=== PATIENT | female | born 1980 | race Two or more races ===

== ENCOUNTER 2017-12-31 09:00 | Inpatient (IN) | payer BC, OTHER ==
[~2017-12-31 09:00] MED LIST: DEXTROSE 5%-LACTATED RINGERS 1,000 ML IV SCH
[2017-12-31 09:47] VITALS: BMI 35.3
[2017-12-31] MEDS ORDERED: PROMETHAZINE HCL 25 MG/1 ML VIAL IVPB ONE (10:14)
[2017-12-31] MEDS ORDERED: BUTORPHANOL TARTRATE 1 MG/ML VIAL ONE ×2 (10:14)
[2017-12-31] MEDS ORDERED: PROMETHAZINE HCL 25 MG/1 ML VIAL ONE (10:14)
[2017-12-31] MEDS ORDERED: BUTORPHANOL TARTRATE 1 MG/ML VIAL IVPB ONE (10:14)
[2017-12-31 10:31] LABS: BASO % 0.4 % (0-2.0); EOS % 0.2 % (0-4.5); HEMATOCRIT 38.8 % (32.4-45.2); HEMOGLOBIN 12.8 GM/dL (10.7-15.3); LYMPH % 15.6 % (8-40); MCHC 32.9 g/dl (32.0-36.0); MEAN CELL VOLUME 91.3 fl (80-96); MEAN PLT VOLUME 8.3 fl (7.5-11.1); MONO % 5.7 % (3.8-10.2); NEUT % 78.1 % (42.8-82.8); PLATELET COUNT 270 K/MM3 (134-434); RBC 4.25 M/mm3 (3.60-5.2); RDW 13.5 % (11.6-15.6); WHITE BLOOD COUNT 10.9 K/mm3 (4.0-10.0)
[2017-12-31 10:54] LABS: INR 0.87 (0.83-1.09); PROTHROMBIN TIME (PATIENT) 10.2 SEC (9.7-13.0)
[2017-12-31 10:57] LABS: ACTIVATED PTT 26.7 SECONDS (25.2-36.5)
[2017-12-31] MEDS ORDERED: TUBERCULIN PPD 5 TU/0.1ML SYRINGE (IN PATIENT USE ONLY) ID ONE (11:00)
[2017-12-31 11:03] LABS: ANION GAP -17 MMOL/L (8-16); BLOOD UREA NITROGEN 8 mg/dL (7-18); CALCIUM 9.5 mg/dL (8.5-10.1); CHLORIDE 112 mmol/L (98-107); CO2 19 mmol/L (21-32); CREATININE 0.6 mg/dL (0.55-1.3); GLUCOSE,RANDOM 86 mg/dL (74-106); POTASSIUM 3.5 mmol/L (3.5-5.1)
[2017-12-31 11:16] LABS: SODIUM 115 mmol/L (136-145)
[2017-12-31] MEDS ORDERED: SODIUM CHLORIDE 1,000 ML IV SCH (12:25)
[2017-12-31 12:29] LABS: PLATELET ESTIMATE ADEQUATE
[2017-12-31 14:49] LABS: ALK PHOS 180 U/L (45-117); ANION GAP 8 MMOL/L (8-16); BILIRUBIN,TOTAL 0.5 mg/dL (0.2-1); BLOOD UREA NITROGEN 7 mg/dL (7-18); CALCIUM 8.6 mg/dL (8.5-10.1); CHLORIDE 106 mmol/L (98-107); CO2 19 mmol/L (21-32); CREATININE 0.6 mg/dL (0.55-1.3); GLUCOSE,RANDOM 93 mg/dL (74-106); POTASSIUM 4.2 mmol/L (3.5-5.1); SGOT/AST 16 U/L (15-37); SGPT/ALT 17 U/L (13-61); SODIUM 133 mmol/L (136-145); TOT PROT 6.7 g/dl (6.4-8.2)
[2017-12-31] MEDS ORDERED: FENTANYL/BUPIVACAINE/NS/PF - PCEA - 50 ML DISP.SYRIN EP ONE ×3 (14:53→23:11)
[2017-12-31] MEDS ORDERED: BUPIVACAINE HCL/PF 0.25% (2.5MG/ML) 10 ML VIAL ONE (15:00)
[2017-12-31] MEDS ORDERED: ELECTROLYTE-148 SOLN 500 ML IV SCH (15:00)
[2017-12-31] MEDS ORDERED: NALOXONE HCL 0.4 MG/ML VIAL IVPUSH PRN (15:27)
[2017-12-31] MEDS ORDERED: FENTANYL/BUPIVACAINE/NS/PF - PCEA - 50 ML DISP.SYRIN EP SCH (15:30)
[2017-12-31] MEDS ORDERED: ePHEDrine SULFATE 50 MG/1 ML AMPULE ONE (15:38)
[2017-12-31] MEDS ORDERED: SODIUM CHLORIDE 0.9% P/F 10 ML VIAL IJ ONE (15:38)
[2017-12-31] MEDS ORDERED: ELECTROLYTE-148 SOLN 1,000 ML IV SCH (16:00)
--- NOTE | 2017-12-31 20:29 | HP ---
Past Medical History - Primary Care Physician PCP:: Alxei Renae - Admission Chief Complaint: 37yo P0 with at EGA 39w3d admitted with spontaneous labor. History of Present Illness: Pt was admitted tis morning with spontaneous latent labor. she progressed to 2cm and requested epidural anesthesia. The epidural was placed. Post-epidural hypotension was noted and caused bradycardia at 3:33pm x 8min. The pt's blood pressure was corrected and the FHT recovered to Category I. The pt progressed to 5-6cm of dilation. She subsequently had a another prolonged deceleration at 6:30pm x 2 min that recovered with position change to Category I tracing. The pt was re-examined at 7pm and found to be still 5-6cm. AROM was done and clear fluid was noted. Late transfer of care AMA Hx of Gastric sleeve H/o cardiac echogenic focus- genetic screen was negative Vag GBS negative History Source: Patient, Medical Record Limitations to Obtaining History: No Limitations - Past Medical History PLANER OPERATOR: No: Alzheimer's, CVA, Dementia, Migraine, Multiple Sclerosis, Peripheral Neuropathy, Parkinson's, Seizure, Syncope, TIA, Vertigo, Other Cardiovascular: No: AFIB, Aneurysm, Aortic Insufficiency, Aortic Stenosis, CAD, CHF, Deep Vein Thrombosis, HTN, Hyperlipdemia, MN, Mitral Insufficiency, Mitral Stenosis, Murmur, Pulmonary Hypertension, Other Pulmonary: No: Asthma, Bronchitis, Cancer, COPD, O2 Dependent, Pneumonia, Previously Intubated, Pulmonary Embolus, Pulmonary Fibrosis, Sleep Apnea, Other Gastrointestinal: No: Ascites, Cancer, Constipation, Crohn's Disease, Diverticulitis, Diverticulosis, Esophageal Varices, Gastritis, GERD, GI Bleed, Hemorrhoids, Hiatal Hernia, Inflamatory Bowel Disease, Irritable Bowel Disease, Pancreatitis, Peptic Ulcer Disease, Ulcerative Colitis, Other Hepatobiliary: No: Cirrhosis, Cholelithiasis, Cholecystitis, Choledocholithiasis , Hepatitis A, Hepatitis B, Hepatitis C, Other Renal/: No: Renal Failure, Renal Inusuff, BPH, Cancer, Hematuria, Hemodialysis , Neurogenic Bladder, Renal Calculi, UTI, Other Reproductive: No: Ectopic , Endometriosis, Fibroids, PID, Polycystic Ovary Syndrome, Postmenopausal, Other ...: 1 ...Para: 0 ...Term: 0 ...: 0 ...Spon : 0 ...Induced : 0 ...Multiple Gestation: 0 ...LMP: 04/06/17 ... Weeks Gestation by Dates: 38.3 ...EDC by Dates: 01/11/18 ...EDC by Sono: 01/04/18 Heme/Onc: No: Anemia, B12 Deficiency, Bleeding Disorder, Cancer, Current Chemotherapy, Current Radiation Therapy, Hemochromatosis, Hypercoaguable State, Myeloproliferative Synd, Sickle Cell Disease, Sickle Cell Trait, Thrombocytopenia, Other Infectious Disease: No: AIDS, C-Diff, Herpes Zoster, HIV, MRSA, STD's, Tuberculosis, VREF, Other Psych: No: Addictions, Anxiety, Bipolar, Depression, Panic, Psychosis, Schizophrenia, Other Musculoskeletal: No: Bursitis, Chronic low back pain, Hemiparesis, Hemiplegia, Osteoarthritis, Paraplegia, Other Rheumatology: No: Fibromyalgia, Gout, Lupus, Rheumatoid Arthritis, Sarcoidosis, Vasculitis, Other ENT: No: Allergic Rhinitis, Sinusitis, Other Endocrine: No: Cortez's Disease, Breckenridge's Disease, Diabetes Insipidus, Diabetes Mellitus, Hyperparathyroidism, Hyperthyroidism, Hypothyroidism, Osteopenia, SIADH, Other Dermatology: No: Basal Cell, Cellulitis, Eczema, Melanoma, Psoriasis, Squamous Cell, Other - Past Surgical History Past Surgical History: Yes: Appendectomy Hx Myomectomy: No Hx Transabdominal Cerclage: No Additional Surgical History: Laparoscopy x 2 for appendectomy, vertical sleeve gastrectomy- laparoscopy - Smoking History Smoking history: Never smoked Have you smoked in the past 12 months: No - Alcohol/Substance Use Hx Alcohol Use: No History of Substance Use: reports: None - Social History Usual Living Arrangement: Yes: With Spouse ADL: Independent History of Recent Travel: No Home Medications - Allergies Allergies/Adverse Reactions: Allergies Allergy/AdvReac Type Severity Reaction Status Date / Time morphine Allergy Mild Itching Verified 12/31/17 09:33 - Home Medications Home Medications: Ambulatory Orders Vitamins (Sjr) - 1 tab PO DAILY 12/31/17 Family Disease History - Family Disease History Family Disease History: Diabetes: Father, Heart Disease: Father, Mother Review of Systems - Review of Systems Constitutional: reports: No Symptoms, Other (labor) Eyes: reports: No Symptoms HENT: reports: No Symptoms Neck: reports: No Symptoms Cardiovascular: reports: No Symptoms Respiratory: reports: No Symptoms Gastrointestinal: reports: No Symptoms Genitourinary: reports: No Symptoms Breasts: reports: No Symptoms Reported Musculoskeletal: reports: No Symptoms Integumentary: reports: No Symptoms Neurological: reports: No Symptoms Endocrine: reports: No Symptoms Hematology/Lymphatic: reports: No Symptoms Psychiatric: reports: No Symptoms Pain Intensity: 0 (s/p epidural) Physical Exam - Maternity Vital Signs: Vital Signs Temperature 97.2 F L 12/31/17 17:30 Pulse Rate 68 12/31/17 19:30 Respiratory Rate 17 12/31/17 19:30 Blood Pressure 123/62 12/31/17 19:30 O2 Sat by Pulse Oximetry (%) 100 12/31/17 19:43 Constitutional: Yes: Well Nourished, No Distress, Calm Eyes: Yes: WNL, Conjunctiva Clear HENT: Yes: WNL, Atraumatic, Normocephalic Neck: Yes: WNL, Supple, Trachea Midline Cardiovascular: Yes: WNL, Regular Rate and Rhythm Lungs: Clear to auscultation, Normal air movement - Abdominal Exam/OB Fundal Height: 39 Number of Fetuses: Single Presentation: Vertex Contractions: Yes Regularity: Regular Intensity: Unaware Monitor Mode: External Heart Rate (range): 125 Heart Rate Location: Midline Category: I Accelerations: Non-Uniform Decelerations: None - Vaginal Exam/OB Vaginal Bleediing: No Speculum Exam: No Dilatation (cm): 5.5 Effacement (%): 80 Amniotic Membrane Status: Ruptured (AROM) Amniotic Fluid: Yes: Clear Station: -1 - Physical Exam Musculoskeletal: Yes: WNL Extremities: Yes: WNL Edema: Yes Edema: LLE: Trace, RLE: Trace Integumentary: Yes: WNL Deep Tendon Reflex Grade: Normal +2 ...Motor Strength: WNL Psychiatric: Yes: WNL, Alert, Oriented - Labs Lab Results: CBC, BMP 12/31/17 10:20 12/31/17 13:55 Hemorrhage Risk Assessment - Risk Factors Medium Risk Factors: Yes: None High Risk Factors: Yes: None Risk Score: 1 Risk Level: Medium Risk Imaging - Results Ultrasound: Report Reviewed Assessment/Plan 37yo P0 with at EGA 39w3d admitted in spontaneous latent labor. She progressed to 5-6cm of dilation. The FHT is Category I and fetus does not need intervention. Plan to monitor labor progress.
--- NOTE | 2017-12-31 21:32 | PN ---
Ante-Partal Exam - Subjective Subjective: Pt had two decels x 2 min each that recovered with position change. Vital Signs: Vital Signs Temperature 98.7 F 12/31/17 20:00 Pulse Rate 66 12/31/17 20:45 Respiratory Rate 17 12/31/17 20:45 Blood Pressure 108/56 L 12/31/17 20:45 O2 Sat by Pulse Oximetry (%) 100 12/31/17 20:45 Bleeding: No Headache: No Visual changes: No Right upper quadrant pain: No Pain (scale 1-10): 0 - Contractions Contractions: Yes (q3min) Regularity: Regular Intensity: Unaware Monitor Mode: External - Exam during Labor Heart Rate: 140 Variability: Moderate Heart Rate Location: Midline Category: II Monitor Accelerations: Present Monitor Decelerations: None Exam: Vaginal Dilatation (cm): 5.5 Effacement (%): 80 Amniotic Membrane Status: Leaking Amniotic Fluid: Meconium Stained Meconium Staining: Light Presentation: Vertex Station: -1 Remarks: FSE was applied - Intrapartum Hemorrhage Risk Medium Risk Factors: None High Risk Factors: None Risk Score: 0 Risk Level: Low Risk - Assessment/Plan Assessment/Plan: Arrest of dilation. Fetus with two spontaneous decels x 2 min each. Pt was again given O2 by mask, position changed. The tracing became Category I. Plan to monitor tracing and labor progress.
--- NOTE | 2017-12-31 23:12 | PN ---
Ante-Partal Exam - Subjective Subjective: Pt w/o complaints. We discussed the tx options. Vital Signs: Vital Signs Temperature 98.8 F 12/31/17 22:00 Pulse Rate 64 12/31/17 22:45 Respiratory Rate 17 12/31/17 22:45 Blood Pressure 121/65 12/31/17 22:45 O2 Sat by Pulse Oximetry (%) 100 12/31/17 22:45 Bleeding: No Headache: No Visual changes: No Right upper quadrant pain: No Pain (scale 1-10): 0 - Contractions Contractions: Yes Regularity: Irregular (4-6 min) Intensity: Unaware Monitor Mode: External - Exam during Labor Heart Rate: 140 Variability: Moderate Heart Rate Location: Midline Category: I Monitor Accelerations: Present Monitor Decelerations: None (prior spont decels sporadically) Exam: Vaginal Dilatation (cm): 5.5 Effacement (%): 80 Amniotic Membrane Status: Leaking Meconium Staining: Light Presentation: Vertex Station: -1 - Intrapartum Hemorrhage Risk Medium Risk Factors: None High Risk Factors: None Risk Score: 0 Risk Level: Low Risk - Assessment/Plan Assessment/Plan: Arrest of dilation. The contractions are irregular. tracing is Category I. No intervention is required. Pt was advised of tx options: continued monitoring w/o intervention, augmenting contractions with pitocin, or delivery. I had a long discussion with the pt and her and explained the risks of expectant mgt, chorio, pitocin , uterine tachysystole, feta distress/trauma, etc. We also discussed the surgical risks, including that of an emergency C/S. The pt requested more time to consider her options.
[2017-12-31] MEDS ORDERED: OXYTOCIN 20 UNITS in 0.9% NS 20 UNIT/1,000 ML INFUS.BAG IV ONE (23:58)
[2018-01-01] MEDS ORDERED: LIDO 2%/EPI 1:200000 PRESRVFRE (20 ML SDVIAL) ONE
[2018-01-01] MEDS ORDERED: ceFAZolin SODIUM 1 GM VIAL ONE (00:22)
[2018-01-01] MEDS ORDERED: morphine SULFATE/Preservative Free 0.5 MG/ML (1cc Syringe) EP ONE (00:45)
[2018-01-01] MEDS ORDERED: WITCH HAZEL 50% (TUCKS) 40 PAD/JAR PAD TP PRN (01:28)
[2018-01-01] MEDS ORDERED: BENZOCAINE 20% 57 GM BOTTLE TP PRN (01:28)
[2018-01-01] MEDS ORDERED: IBUPROFEN 800 MG/8 ML IJ IVPB PRN (01:28)
[2018-01-01] MEDS ORDERED: METHYLERGONOVINE MALEATE 0.2 MG/1 ML AMP IM PRN (01:28)
[2018-01-01] MEDS ORDERED: BENZOCAINE 28 GM HEMORRHOIDAL OINTMENT TP PRN (01:28)
[2018-01-01] MEDS ORDERED: OXYTOCIN 20 UNITS in 0.9% NS 20 UNIT/1,000 ML INFUS.BAG IV SCH (01:30)
[2018-01-01] MEDS ORDERED: ONDANSETRON 4 MG/2 ML VIAL IVPUSH PRN (01:32)
--- NOTE | 2018-01-01 01:35 | OP ---
Operative Note - Note: Operative Date: 01/01/18 Pre-Operative Diagnosis: at EGA 39w3d. Arrest of dilation. NRFHT Operation: Primary LT C/S Findings: Live baby boy in vtx presentation. Meconium in amniotic fluid. Normal uterus, tubes, ovaries. 9/9 Post-Operative Diagnosis: Same as Pre-op Surgeon: Alexi Renae Clerical Secretary: Rony Phillips Anesthesiologist/CNP: Kristian Gaston Anesthesia: Epidural Specimens Removed: Placenta Estimated Blood Loss (mls): 700 Drains & Tubes with Location: Morales Drains, Volume Out (mls): 100 Blood Volume Replaced (mls): 0 Fluid Volume Replaced (mls): 100 Operative Report Dictated: Yes
[2018-01-01 01:36] LABS: VENOUS PC02 50.1 mmHg (38-52); VENOUS PH 7.3 (7.32-7.42)
[2018-01-01 01:37] LABS: ARTERIAL BLOOD GAS BASE EXCESS -2.7 meq/l (-2-2); ARTERIAL BLOOD GAS PCO2 56.1 mmHg (35-45); ARTERIAL BLOOD GAS pH 7.26 (7.35-7.45)
[2018-01-01 01:39] LABS: ARTERIAL BLD GAS O2 SATURATION 7.8 % (90-98.9)
[2018-01-01] MEDS ORDERED: OXYTOCIN 20 UNITS in 0.9% NS 20 UNIT/1,000 ML INFUS.BAG IV ONE (02:52)
[2018-01-01 06:11] LABS: HBsAG SCREEN Negative (Negative); RUBELLA IgG ANTIBODY 2.75 index (Immune >0.99)
[2018-01-01] MEDS: ENOXAPARIN NA (PORCINE) 40 MG/0.4 ML DISP.SYRIN SQ SCH (09:18)
[2018-01-01] MEDS: PRENATAL VITAMINS W/ FOLIC ACID TABLET (FP) PO SCH (09:28)
--- NOTE | 2018-01-01 10:20 | PN ---
Progress Note (short form) - Note Progress Note: Anesthesia post op note, POD#1 . S/P primary for labor arrest, under Epidural with duramorph. Pat seen and examined. VSS. No apparent post anesthesia complications. Signed off.
--- NOTE | 2018-01-01 15:01 | PN ---
Delivery - Delivery Section: Primary, Low Flap Transverse Type of Anesthesia: Epidural, Spinal EBL (cc): 700 Delivery, Single - Stages of Labor Date 1st Stage Initiatied: 12/31/17 Time 1st Stage Initiated: 10:00 Date of Delivery: 01/01/18 Time of Delivery: 00:37 Time Placenta Delivered: 00:38 Placenta: Yes: Expressed, Manual Removal, Normal Configuration - Condition of Dining Server/Junior Sales Assistant Present: Yes Name: Kobe Winston Gender: Male Weight: 2.807 kg Position: Right, OT Total Hours ROM (Hrs/Mins): 5Hrs/33Mins - 1 Minute Total Score: 9 5 Minutes Total Score: 9 - Feeding Plan Initial Plan: Exclusive throughout hospitalization Remarks - Remarks Remarks: Uncomplicated primary LT C/S
[2018-01-01] MEDS: SIMETHICONE 80 MG TAB.CHEW (FP) PO PRN ×2 (15:44→20:34)
[2018-01-01] MEDS: ACETAMINOPHEN 325 MG TABLET (FP) PO PRN ×2 (15:44→20:34)
[2018-01-01] MEDS: oxyCODONE HCL 5 MG TABLET PO PRN (20:36)
[2018-01-02] MEDS: oxyCODONE HCL 5 MG TABLET PO PRN ×7 (00:09→22:52)
[2018-01-02] MEDS: ACETAMINOPHEN 325 MG TABLET (FP) PO PRN ×6 (00:10→22:51)
[2018-01-02] MEDS: SIMETHICONE 80 MG TAB.CHEW (FP) PO PRN ×6 (00:10→22:51)
[2018-01-02] MEDS ORDERED: BISACODYL 10 MG SUPP.RECT RC PRN (01:29)
[2018-01-02 07:53] LABS: BASO % 0.3 % (0-2.0); EOS % 1.3 % (0-4.5); HEMOGLOBIN 10.8 GM/dL (10.7-15.3); LYMPH % 25.8 % (8-40); MCH 29.3 pg (25.7-33.7); MCHC 31.9 g/dl (32.0-36.0); MEAN CELL VOLUME 91.8 fl (80-96); MEAN PLT VOLUME 8.3 fl (7.5-11.1); MONO % 9.7 % (3.8-10.2); NEUT % 62.9 % (42.8-82.8); PLATELET COUNT 219 K/MM3 (134-434); RBC 3.71 M/mm3 (3.60-5.2); RDW 13.4 % (11.6-15.6); WHITE BLOOD COUNT 12.1 K/mm3 (4.0-10.0)
--- NOTE | 2018-01-02 09:04 | PN ---
Post Progress Note - Subjective Subjective: Patient without acute complaints. Tolerating clears, without complaints of nausea or vomiting. No ambulation yet. Denies fevers or chills. without difficulty Pain well controlled Morales removed this AM, no voiding yet. Denies flatus. Post Day: 1 Type of Delivery: Primary C/S Vital Signs: Vital Signs Temperature 98.1 F 01/01/18 22:00 Pulse Rate 66 01/01/18 22:00 Respiratory Rate 18 01/01/18 23:00 Blood Pressure 92/47 L 01/01/18 22:00 O2 Sat by Pulse Oximetry (%) 97 01/01/18 22:00 Breast Exam: Yes: Soft Uterus: Yes: Fundus Firm, Fundus below umbilicus Incision: Yes: Dressing dry and intact. No: Redness, Oozing Abdomen/GI: Yes: Abdomen soft, Tender (mild incisional), Passing flatus, Tolerating PO. No: Abdominal Distention Lochia: Yes: Serosa Lochia, amount: Small Extremities: Yes: Calves non-tender. No: Edema - Labs Labs: CBC WBC 12.1 K/mm3 (4.0-10.0) H 01/02/18 06:55 RBC 3.71 M/mm3 (3.60-5.2) 01/02/18 06:55 Hgb 10.8 GM/dL (10.7-15.3) 01/02/18 06:55 Hct 34.0 % (32.4-45.2) 01/02/18 06:55 MCV 91.8 fl (80-96) 01/02/18 06:55 MCH 29.3 pg (25.7-33.7) 01/02/18 06:55 MCHC 31.9 g/dl (32.0-36.0) L 01/02/18 06:55 RDW 13.4 % (11.6-15.6) 01/02/18 06:55 Plt Count 219 K/MM3 (134-434) 01/02/18 06:55 MPV 8.3 fl (7.5-11.1) 01/02/18 06:55 Absolute Neuts (auto) 7.6 K/mm3 (1.5-8.0) 01/02/18 06:55 Total Counted 100 12/31/17 10:20 Neutrophils % 62.9 % (42.8-82.8) 01/02/18 06:55 Neutrophils % (Manual) 76.0 % (42.8-82.8) 12/31/17 10:20 Lymphocytes % 25.8 % (8-40) D 01/02/18 06:55 Lymphocytes % (Manual) 15.0 % (8-40) 12/31/17 10:20 Monocytes % 9.7 % (3.8-10.2) 01/02/18 06:55 Monocytes % (Manual) 8 % (3.8-10.2) 12/31/17 10:20 Eosinophils % 1.3 % (0-4.5) D 01/02/18 06:55 Eosinophils % (Manual) 1.0 % (0-4.5) 12/31/17 10:20 Basophils % 0.3 % (0-2.0) 01/02/18 06:55 Nucleated RBC % 0 % (0-0) 01/02/18 06:55 Platelet Estimate Adequate 12/31/17 10:20 Platelet Comment Rare giant plts 12/31/17 10:20 Assessment/Plan 37 yo POD # 1 s/p primary CD, afebrile, vital signs stable, doing well 1. Continue routine postoperative care. 2. Follow up AM CBC 3. Rh positive status, no rhogam indicated. 4. Encourage ambulation and incentive spirometer use 5. Continue oral pain medication 6. Anticipate discharge home postoperative day #3 or #4
[2018-01-02] MEDS ORDERED: FLU VACCINE QUAD 60 MCG/0.5 ML (MDV 18-19) IM ONE (10:00)
[2018-01-02] MEDS ORDERED: PNEUMOC 13-VAL CONJ-DIP CRM/PF 0.5 ML DISP.SYRIN IM ONE (10:00)
[2018-01-02] MEDS: ENOXAPARIN NA (PORCINE) 40 MG/0.4 ML DISP.SYRIN SQ SCH (10:12)
[2018-01-02] MEDS: PRENATAL VITAMINS W/ FOLIC ACID TABLET (FP) PO SCH (10:12)
[2018-01-02] MEDS ORDERED: PNEUMOCOCCAL 23 VACCINE 0.5 ML VIAL IM ONE (13:00)
[2018-01-02] MEDS: HYDROCORTISONE 1% TOPICAL OINT 30 GM TUBE TP PRN ×2 (18:25→22:54)
[2018-01-02] MEDS: SENNOSIDES/DOCUSATE COMBO (SENNA PLUS) TABLET (UD) PO PRN (20:28)
[2018-01-03] MEDS: SIMETHICONE 80 MG TAB.CHEW (FP) PO PRN ×5 (02:47→21:19)
[2018-01-03] MEDS: oxyCODONE HCL 5 MG TABLET PO PRN ×5 (02:48→21:19)
[2018-01-03] MEDS: ACETAMINOPHEN 325 MG TABLET (FP) PO PRN ×4 (02:49→17:24)
--- NOTE | 2018-01-03 07:31 | PN ---
Progress Note (short form) - Note Progress Note: pod 2 s/p c/s. doing well, tolerating diet.passing gas, no excess vaginal bleeding CBC, BMP 01/02/18 06:55 12/31/17 13:55 Last Vital Signs Temp Pulse Resp BP Pulse Ox 98.7 F 76 18 105/46 L 99 01/02/18 21:36 01/02/18 21:36 01/02/18 21:36 01/02/18 21:36 01/02/18 21:36 abdomen soft, no distension, no cva uterus firm incision dry, clean no calf tenderness plan ambulate , cbc in am
[2018-01-03] MEDS: ENOXAPARIN NA (PORCINE) 40 MG/0.4 ML DISP.SYRIN SQ SCH (09:27)
[2018-01-03] MEDS: PRENATAL VITAMINS W/ FOLIC ACID TABLET (FP) PO SCH (09:27)
--- NOTE | 2018-01-03 12:46 | DS ---
Physical Exam-ACTIVITIES COORDINATOR Vital Signs: Vital Signs Temperature 98.7 F 01/02/18 21:36 Pulse Rate 76 01/02/18 21:36 Respiratory Rate 18 01/02/18 21:36 Blood Pressure 105/46 L 01/02/18 21:36 O2 Sat by Pulse Oximetry (%) 99 01/02/18 21:36 Constitutional: Yes: Well Nourished, No Distress, Calm Eyes: Yes: WNL, Conjunctiva Clear HENT: Yes: WNL, Atraumatic, Normocephalic Neck: Yes: WNL, Supple, Trachea Midline Cardiovascular: Yes: WNL, Regular Rate and Rhythm Respiratory: Yes: WNL, Regular, CTA Bilaterally Gastrointestinal: Yes: WNL, Normal Bowel Sounds, Soft ...Rectal Exam: Yes: WNL Renal/: Yes: WNL External Genitalia: Yes: Normal Internal Exam Deferred: No ....Post : Yes: Uterus firm, Uterus non-tender Breast(s): Yes: WNL Musculoskeletal: Yes: WNL Extremities: Yes: WNL Edema: No Integumentary: Yes: WNL Wound/Incision: Yes: Clean/Dry, Well Approximated, Sutures Intact, Steri Strips , Open to air Neurological: Yes: WNL, Alert, Oriented ...Motor Strength: WNL Psychiatric: Yes: WNL, Alert, Oriented Labs: CBC, BMP 01/02/18 06:55 12/31/17 13:55 Delivery - Delivery Section: Primary, Low Flap Transverse Type of Anesthesia: Epidural, Spinal EBL (cc): 700 Delivery, Single - Stages of Labor Date 1st Stage Initiatied: 12/31/17 Time 1st Stage Initiated: 10:00 Date of Delivery: 01/01/18 Time of Delivery: 00:37 Date Placenta Delivered: 01/01/18 Time Placenta Delivered: 00:38 Placenta: Yes: Expressed, Manual Removal, Normal Configuration - Condition of Tool Tender/Pediatric Registered Nurse Present: Yes Name: Kobe Winston Infant Gender: Male Weight: 2.807 kg Position: Right, OT Total Hours ROM (Hrs/Mins): 5Hrs/33Mins - 1 Minute Total Score: 9 5 Minutes Total Score: 9 - [place] Feeding Plan Initial Plan: Exclusive throughout hospitalization Discharge Summary Reason For Visit: LABOR ADMISSION Arrest of dilation, non-reassuring FHT Procedures: Principal: Primary LT C/S Hospital Course: Normal recovery Condition: Good - Instructions Diet, Activity, Other Instructions: Physical activity Resume your normal everyday activity as tolerated no heavy lifting or exercise until seen by your surgeon. You may walk unlimited diana of and climb stairs. You may resume driving the car when you feel safe and comfortable behind the wheel. No sexual activity as instructed. Wound care If you have a bandage, leave it on, and keep dry for 48-72 hours. After that time discard the outer bandage. If they are tapes on the skin under the out of bandage leave them in place. They will peel off in the next 7 to 10 days. Do Not Peel them off. You may shower the day after surgery. If there are tapes present on the skin, you may shower over them. Diet There are no dietary restrictions. Eat healthy, high-fiber foods. Drink 6 to 8 glasses of liquid each day. This will assist in keeping your bowels are regular. Pain management You may take Tylenol or acetaminophen or Ibuprofen (for example, Motrin, Advil etc.) from my pain prescription medication is ordered should be taken as prescribed for moderate to severe pain. Call MD for any of the following: Severe pain not relieved by medication Fever of 101 or higher Excessive bleeding or drainage on dressing Inability to urinate Referrals: Alexi Renae MD [Staff Physician] - Disposition: HOME - Home Medications Comprehensive Discharge Medication List: Ambulatory Orders Vitamins (Sjr) - 1 tab PO DAILY 12/31/17 Oxycodone HCl/Acetaminophen [Percocet 5-325 mg Tablet -] 1 - 2 tab PO Q6H PRN # 20 tab MDD 8 01/03/18
[2018-01-03] MEDS: IBUPROFEN 600 MG TABLET (FP) PO PRN (21:19)
[2018-01-03] MEDS: SENNOSIDES/DOCUSATE COMBO (SENNA PLUS) TABLET (UD) PO PRN (21:19)
[2018-01-04] MEDS: SIMETHICONE 80 MG TAB.CHEW (FP) PO PRN ×3 (04:59→22:18)
[2018-01-04] MEDS: IBUPROFEN 600 MG TABLET (FP) PO PRN ×3 (04:59→22:18)
[2018-01-04] MEDS: oxyCODONE HCL 5 MG TABLET PO PRN ×3 (05:00→22:18)
[2018-01-04 08:02] LABS: BASO % 0.5 % (0-2.0); HEMATOCRIT 33.5 % (32.4-45.2); HEMOGLOBIN 10.9 GM/dL (10.7-15.3); LYMPH % 33.1 % (8-40); MCH 29.8 pg (25.7-33.7); MCHC 32.6 g/dl (32.0-36.0); MEAN CELL VOLUME 91.4 fl (80-96); MEAN PLT VOLUME 8.3 fl (7.5-11.1); NEUT % 53.4 % (42.8-82.8); PLATELET COUNT 255 K/MM3 (134-434); RBC 3.66 M/mm3 (3.60-5.2); RDW 13.3 % (11.6-15.6); WHITE BLOOD COUNT 7.1 K/mm3 (4.0-10.0)
[2018-01-04] MEDS: PRENATAL VITAMINS W/ FOLIC ACID TABLET (FP) PO SCH (10:29)
[2018-01-04] MEDS: ENOXAPARIN NA (PORCINE) 40 MG/0.4 ML DISP.SYRIN SQ SCH (10:29)
--- NOTE | 2018-01-04 16:22 | PN ---
Progress Note (short form) - Note Progress Note: pod 3 doing wel, no c/o CBC, BMP 01/04/18 06:50 12/31/17 13:55 Last Vital Signs Temp Pulse Resp BP Pulse Ox 98.0 F 64 20 112/67 99 01/03/18 21:08 01/03/18 21:08 01/03/18 21:08 01/03/18 21:08 01/02/18 21:36 abdomen soft, incision dry, clean no calf tenderness plan ambulate, plan for d/c home in am
[2018-01-04] MEDS: SENNOSIDES/DOCUSATE COMBO (SENNA PLUS) TABLET (UD) PO PRN (22:20)
[2018-01-05] MEDS: IBUPROFEN 600 MG TABLET (FP) PO PRN ×2 (06:28→11:18)
[2018-01-05] MEDS: oxyCODONE HCL 5 MG TABLET PO PRN ×2 (06:28→11:17)
[2018-01-05] MEDS: SIMETHICONE 80 MG TAB.CHEW (FP) PO PRN ×2 (06:28→11:19)
[2018-01-05 08:52] VITALS: BP 118/48; PULSE 62; TEMP 97.6
--- NOTE | 2018-01-05 09:47 | PN ---
Progress Note (short form) - Note Progress Note: pod 4 doing well, no c/o CBC, BMP 01/04/18 06:50 12/31/17 13:55 Last Vital Signs Temp Pulse Resp BP Pulse Ox 97.6 F 62 20 118/48 L 99 01/05/18 07:30 01/05/18 07:30 01/05/18 07:30 01/05/18 07:30 01/02/18 21:36 abdomen soft, no distension, incision dry, clean healed well, no discharge no calf tenderness plan ambulate , d/c home, follow up office 1 week
[2018-01-05] MEDS: ENOXAPARIN NA (PORCINE) 40 MG/0.4 ML DISP.SYRIN SQ SCH (10:02)
[2018-01-05] MEDS: PRENATAL VITAMINS W/ FOLIC ACID TABLET (FP) PO SCH (10:02)
--- NOTE | 2018-01-10 16:38 | PATH ---
Surgical Pathology Report Patient Name: SHERIF LOPEZ Med. Rec. #: [id number] /Age/Gender: 1980 (Age: 37) / F Account: [id number] Location: [facility] OBS/HEALTHCARE TRANSLATOR Taken: 01/01/2018 Received: 01/01/2018 Reported: 01/10/2018 Physicians: Alexi Renae M.D. Specimen(s) Received PLACENTA Clinical History , 39.3 weeks, arrested dilation, nonreassuring heart tracing Final Diagnosis PLACENTA: THIRD TRIMESTER PLACENTA. TRIVASCULAR CORD. MEMBRANES WITH NO DIAGNOSTIC ABNORMALITIES. Electronically Signed Alysia Abdul M.D. Gross Description The specimen is received fresh labeled placenta and is a 315 gram, 17.0 x 15.0 x 2.2 cm. placenta with attached membranes and umbilical cord. The attached membranes are heck, translucent with focal opacities and insert marginally. The umbilical cord measures 12 cm. in length and averages 1.2 cm. in diameter. The cord inserts eccentrically, 4.5 cm. to the nearest margin. No true knots or strictures are identified. Cut surface of the umbilical cord reveals 3 vessels. The surface is trevino-blue with minimal fibrin deposition and appropriate caliber vessels. The maternal surface is red-brown with focal defects. Sectioning reveals no lesions are identified. Food Counselor sections are submitted in three cassettes as follows: 1- membrane rolls and umbilical cord; 2-3- full thickness sections of placenta. /01/09/2018 saudi01/09/2018
== END 2018-01-05 13:50 | disposition home or self-care (01) | DRG 788 ==
LOC: JLDR 09:00 → J3W 01-01 03:30
PROVIDERS: ADMIT Obstetrics & Gynecology; ATTEND Obstetrics & Gynecology
PROC: 10D00Z1 Extraction of Products of Conception, Low, Open Approach (ICD-10-PCS; principal; 2018-01-01)
DX: O62.1 Secondary uterine inertia (principal); O76 Abnormality in fetal heart rate and rhythm complicating labor and delivery; O77.0 Labor and delivery complicated by meconium in amniotic fluid; O26.893 Other specified pregnancy related conditions, third trimester; Z98.84 Bariatric surgery status; Z37.0 Single live birth; Z3A.39 39 weeks gestation of pregnancy
CPT/HCPCS: 36415; 36600; 80048; 80053; 82803; 85025; 85461; 85610; 85730; 86593; 86762; 86850; 86900; 86901; 86999; 87340; 88307-TC; 90686; 90732; G0008; G0009; J7030